=== PATIENT | male | born 1955 | race Caucasian/White ===

== ENCOUNTER 2018-03-07 10:45 | Emergency (ER) | payer OTHER ==
[~2018-03-07] VITALS: Ht 172.7 cm; Wt 95.3 kg
[~2018-03-07 10:45] MED LIST: ASPIR 8181 MG PO; HYDROCHLOROTH12.5 M1 PO; LIPITOR 20 MG T20 M1 PO
[2018-03-07 11:29] LABS: ABSOLUTE EOSINOPHILS 0.1 thou/uL (0.0-0.7); ABSOLUTE LYMPHOCYTES 1.9 thou/uL (0.8-5.3); ABSOLUTE MONOCYTES 0.7 thou/uL (0.0-1.2); ABSOLUTE NEUTROPHILS 3.7 thou/uL (1.6-8.1); BASOPHILS 0.6 %; EOSINOPHILS 1.3 %; HEMATOCRIT 42.5 % (42.0-52.0); HEMOGLOBIN 14.2 gm/dL (14.0-18.0); LYMPHOCYTES 29.9 %; MCH 29.7 pg (26.0-34.0); MCHC 33.5 g/dL (28.0-37.0); MCV 88.8 fL (80.0-100.0); MONOCYTES 10.6 %; MPV 8.1 fl. (7.2-11.1); NUCLEATED RBCS 0 /100WBC; PLATELET COUNT* 294 thou/uL (150-400); POLYS 57.6 %; RBC 4.78 mil/uL (4.50-6.00); RDW-CV 14.9 % (10.5-14.5); WBC 6.4 thou/uL (4.0-11.0)
[2018-03-07 11:43] LABS: CALCIUM 8.4 mg/dL (8.5-10.1); CREATININE 0.6 mg/dL (0.6-1.3); POTASSIUM 3.9 mmol/L (3.5-5.1)
[2018-03-07 11:56] LABS: ALBUMIN 3.3 g/dL (3.4-5.0); TOTAL BILIRUBIN 0.6 mg/dL (<0.1-1.0); TOTAL PROTEIN 7.4 g/dL (6.4-8.2)
[2018-03-07] MEDS ORDERED: BACTRIM DS TAB1 EAC1 PO (13:27)
[2018-03-07] MEDS ORDERED: KEFLEX500 M1 PO (13:27)
[2018-03-07 13:43] VITALS: BP 144/78
== END 2018-03-07 13:45 | disposition home or self-care (01) ==
LOC: M.ERS 10:45
PROVIDERS: Physician Assistant Surgical
DX: L03.114 Cellulitis of left upper limb (principal); F17.200 Nicotine dependence, unspecified, uncomplicated

== ENCOUNTER 2018-03-08 13:28 | Emergency (ER) | payer OTHER ==
[~2018-03-08] VITALS: Ht 172.7 cm; Wt 95.3 kg
[~2018-03-08 13:28] MED LIST changes: +BACTRIM DS TAB1 EAC1 PO; +KEFLEX500 M1 PO
[2018-03-08 14:25] VITALS: BP 138/87
== END 2018-03-08 14:26 | disposition home or self-care (01) ==
LOC: M.ERS 13:28
DX: L03.114 Cellulitis of left upper limb (principal)

== ENCOUNTER 2018-05-14 16:44 | Emergency (ER) | payer OTHER ==
[~2018-05-14] VITALS: Ht 172.7 cm; Wt 90.7 kg
[2018-05-14] MEDS ORDERED: NEXIUM40 MG PO (16:53)
[2018-05-14] MEDS ORDERED: IBUPROFEN 800800 M1 PO (18:02)
[2018-05-14 18:20] VITALS: BP 124/81
== END 2018-05-14 18:21 | disposition home or self-care (01) ==
LOC: M.ERS 16:44
DX: S50.01XA Contusion of right elbow, initial encounter (principal); X58.XXXA Exposure to other specified factors, initial encounter; Y93.89 Activity, other specified; Y92.89 Other specified places as the place of occurrence of the external cause; Y99.8 Other external cause status